=== PATIENT | female | born 1995 ===

== ENCOUNTER 2020-10-21 04:26 | Emergency (ER) | payer SELFPAY ==
[2020-10-21 05:22] VITALS: BP 133/66
[2020-10-21 06:13] LABS: Hematocrit 31.8 % (30.3-42.9); Hemoglobin 10.2 gm/dl (10.1-14.3); Mean Corpuscular HGB Conc 32 % (30-34); Mean Corpuscular Volume 76 fl (79-97); Platelet Count 215 K/mm3 (140-440); Red Blood Count 4.18 M/mm3 (3.65-5.03); Red Cell Distribution Width 17.9 % (13.2-15.2)
== END 2020-10-21 18:30 ==
LOC: ED 04:26
DX: N93.9 Abnormal uterine and vaginal bleeding, unspecified (principal); Z53.21 Procedure and treatment not carried out due to patient leaving prior to being seen by health care provider
CPT/HCPCS: 36415; 84703; 85027